=== PATIENT | female | born 1975 | race Two or more races ===

== ENCOUNTER 2023-11-27 14:18 | Emergency (ER) | payer OTHER ==
[~2023-11-27] VITALS: Ht 157.5 cm; Wt 56.7 kg
[2023-11-27 14:45] LABS: HEMATOCRIT 29.3 % (36.0-45.00); HEMOGLOBIN 9.3 g/dL (12.0-15.00); MEAN CELL VOLUME 76.2 fL (80.00-100.00); MEAN CORPUSCULAR HEMOGLOBIN 24.2 pg (27.00-32.0); MEAN CORPUSCULAR HGB CONC 31.7 g/dl (32.0-36.0); PLATELET COUNT 218 K/uL (150-450); RED BLOOD COUNT 3.85 M/uL (4.00-6.00); RED CELL DISTRIBUTION WIDTH 20.8 % (11.5-14.5)
[2023-11-27] MEDS ORDERED: 0.9 % SODIUM CHLORIDE 1,000 ML IV ONE (14:45)
[2023-11-27 15:29] LABS: ALBUMIN 3.7 gm/dL (3.4-5.0); ALKALINE PHOSPHATASE 64 U/L (50-136); ALT/SGPT 18 U/L (12-78); ANION GAP 9 (10.0-20.0); AST/SGOT 11 U/L (15-37); BILIRUBIN TOTAL 0.37 mg/dL (0.3-1.2); BLOOD UREA NITROGEN 12 mg/dL (7-18); BUN CREA RATIO 13 (7.0-25.0); CALCIUM 9.8 mg/dL (8.5-10.1); CARBON DIOXIDE 24 mEq/L (21-32); CHLORIDE 111 mmol/L (98-107); CREATININE SERUM 0.91 mg/dL (0.55-1.02); GFR 65.43; GLOBULINA 3.9 G/DL (2.4-3.5); GLUCOSE FASTING 104 mg/dL (65-100); OSMOLALITY SERUM 279 MOSM/KG (275-295); POTASSIUM 3.57 mEq/L (3.5-5.1); SODIUM 140 mmol/L (136-145); TOTAL PROTEIN 7.6 gm/dL (6.4-8.2)
[2023-11-27 15:48] LABS: HCG QUANTITATIVE < 1 mUI/mL (1-3)
[2023-11-27 16:29] LABS: PH,URINE 5.5 (5.0-8.0); URINE APPEARANCE Clear; URINE BILIRRUBIN Negative (NEGATIVE); URINE BLOOD Negative; URINE COLOR Yellow; URINE GLUCOSE Negative (NEGATIVE); URINE KETONE Negative (NEGATIVE); URINE LEUKOCYTE Negative; URINE NITRATE Negative; URINE PROTEIN Negative (NEGATIVE); URINE UROBILINOGEN 0.2 E.U./dl
[2023-11-27 16:33] LABS: URINE BACTERIA 1000.3 uL (0.0-1933); URINE CAST 5.03 uL (0.0-1.40); URINE EPITHELIAL CELLS 30.1 uL (0.0-38.8); URINE RBC 43.5 uL (0.0-20.8); URINE WBC 13.1 uL (0.0-23.2)
[2023-11-27 16:53] LABS: COCAINE NEGATIVE (NEGATIVE); METHADONE NEGATIVE (NEGATIVE); OPIATES NEGATIVE (NEGATIVE); THC ( Cannabinoids) POSITIVE (NEGATIVE)
== END 2023-11-27 17:15 | disposition home or self-care (01) ==
LOC: ER 14:18
PROVIDERS: General Practice
DX: T67.01XA Heatstroke and sunstroke, initial encounter (principal); Y92.89 Other specified places as the place of occurrence of the external cause; F12.929 Cannabis use, unspecified with intoxication, unspecified